=== PATIENT | female | born 1985 | race Caucasian/White ===

== ENCOUNTER 2017-09-20 19:11 | Emergency (ER) | payer OTHER ==
[~2017-09-20] VITALS: Ht 162.6 cm; Wt 60.8 kg
[~2017-09-20 19:11] MED LIST: SUMA50TA15 PO; TOPI100T20 PO
[2017-09-20 19:15] VITALS: TEMP 36.9; Ht 162.6 cm; Wt 60.8 kg
[2017-09-20] MEDS ORDERED: SODIUM CHLORIDE 0.9% 1000ML 1,000 ML IV STA (19:21)
--- NOTE | 2017-09-20 19:31 | EMERGENCY ROOM VISIT NOTE ---
History Report prepared by Haris: Juan Antonio Shin Under the Supervision of: Dr. Lm Bedoya M.D. First contact with patient: 19:16 Chief Complaint: RECTAL BLEEDING Stated Complaint: R SIDE PAIN, RECTAL BLEEDING History of Present Illness The patient is a 32 year old female who presents to the Emergency Room with complaints of severe rectal bleeding beginning tonight. The patient also notes right-sided abdominal pain but states that it has been there for awhile. She denies a history of rectal bleeding like this, and reports that a colonoscopy she received at [facility] 2 years ago was unremarkable. She denies vaginal bleeding, nausea, vomiting, or hematuria. She reports that her father had severe ulcerative colitis. She notes that she had a tubal ligation. The patient denies having anal sex. Source of History: patient Onset: tonight Position: other (rectum) Symptom Intensity: severe Quality: other (rectal bleeding) Associated Symptoms: + abdominal pain, No nausea, No vomiting, No urinary symptoms Note: denies vaginal bleeding Review of Systems See HPI for pertinent positives and negatives. A total of ten systems were reviewed and were otherwise negative. Past Medical & Surgical Medical Problems: (1) Migraines (2) No known health problems Surgical Problems: (1) Hx of tubal ligation Family History FHx: gallbladder disease FHx: hypertension FHx: kidney disease FHx: lung disease Kidney stone Ulcerative colitis Social History Smoking Status: Never Smoker Alcohol Use: none Housing Status: lives with family Occupation Status: employed Current/Historical Medications Scheduled Topiramate (Topamax), 100 MG PO BID Scheduled PRN Sumatriptan Succinate (Imitrex), 50 MG PO UD PRN for Migraine Allergies Coded Allergies: Cefaclor (Verified Allergy, Unknown, BERE, 11/02/15) Physical Exam Vital Signs Date Time Temp Pulse Resp B/P (MAP) Pulse Ox O2 Delivery O2 Flow Rate FiO2 09/20/17 20:40 76 16 102/64 98 09/20/17 20:14 86 16 109/74 99 Room Air 09/20/17 19:15 36.9 104 18 99 Room Air Physical Exam Physical Exam GENERAL: She is oriented to person, place, and time. She appears well- developed and well-nourished. She does not appear distressed. HENT: Exam performed. Head: Normocephalic and atraumatic. Right Ear: External ear normal. No mastoid tenderness. Left Ear: External ear normal. No mastoid tenderness. Mouth/Throat: The oropharynx is clear and moist. No trismus in the jaw. No dental abscesses or uvula swelling. No oropharyngeal exudate or tonsillar abscesses. EYES: Conjunctivae and EOM are normal. Pupils are equal, round, and reactive to light. Right eye exhibits no discharge. Left eye exhibits no discharge. No scleral icterus. NECK: Normal range of motion. Neck supple. No JVD present. No spinous process tenderness present. No carotid bruit present. No rigidity. No tracheal deviation and normal range of motion present. No Brudzinski's sign and no Kernig 's sign noted. CV: Normal rate, regular rhythm, normal heart sounds and intact distal pulses. There is no peripheral edema. Palpable radial pulses bue. PULM/CHEST: Effort normal and breath sounds normal. No respiratory distress. No stridor. She has no wheezes. She has no rales. Chest Wall: She exhibits no tenderness. ABD: The abdomen is soft. Bowel sounds are normal. She has no distension. No mass is present. There is right lower quadrant pain with palpation. There is no rebound, no guarding, no Bee's sign and no tenderness at McBurney's point. Rovsig negative MUSC/SKEL: Normal range of motion. There is no peripheral edema, tenderness or deformity. LYMPH: No cervical adenopathy. NEURO: She is alert and oriented to person, place, and time. She has normal strength. No cranial nerve deficit or sensory deficit. Coordination and gait normal. GCS eye subscore is 4. GCS verbal subscore is 5. GCS motor subscore is 6. Cerebellar tests wnl. SKIN: Skin is warm and dry. She is not diaphoretic. PSYCH: She has a normal mood and affect. Behavior is normal. Judgment and thought content normal. RECTAL: Bright red blood per rectum. Medical Decision & Procedures Laboratory Results 09/20/17 19:30 Red Blood Count 4.46, Mean Corpuscular Volume 85.7, Mean Corpuscular Hemoglobin 28.3, Mean Corpuscular Hemoglobin Concent 33.0, Mean Platelet Volume 11.3, Neutrophils (%) (Auto) 56.3, Lymphocytes (%) (Auto) 34.9, Monocytes (%) (Auto) 6.5, Eosinophils (%) (Auto) 1.7, Basophils (%) (Auto) 0.3, Neutrophils # (Auto) 4.09, Lymphocytes # (Auto) 2.53, Monocytes # (Auto) 0.47, Eosinophils # (Auto) 0.12, Basophils # (Auto) 0.02 09/20/17 19:30 Test 09/20/17 19:25 09/20/17 19:30 Urine Color YELLOW Urine Appearance CLOUDY (CLEAR) Urine pH 7.0 (4.5-7.5) Urine Specific [place] 1.017 (1.000-1.030) Urine Protein NEG (NEG) Urine Glucose (UA) NEG (NEG) Urine Ketones NEG (NEG) Urine Occult Blood NEG (NEG) Urine Nitrite NEG (NEG) Urine Bilirubin NEG (NEG) Urine Urobilinogen NEG (NEG) Urine Leukocyte Esterase SMALL (NEG) Urine WBC (Auto) 1-5 /hpf (0-5) Urine RBC (Auto) 0-4 /hpf (0-4) Urine Hyaline Casts (Auto) 1-5 /lpf (0-5) Urine Epithelial Cells (Auto) 10-20 /lpf (0-5) Urine Bacteria (Auto) NEG (NEG) Urine Test NEG (NEG) White Blood Count 7.25 K/uL (4.8-10.8) Red Blood Count 4.46 M/uL (4.2-5.4) Hemoglobin 12.6 g/dL (12.0-16.0) Hematocrit 38.2 % (37-47) Mean Corpuscular Volume 85.7 fL (80-100) Mean Corpuscular Hemoglobin 28.3 pg (25-34) Mean Corpuscular Hemoglobin Concent 33.0 g/dl (32-36) Platelet Count 199 K/uL (130-400) Mean Platelet Volume 11.3 fL (7.4-10.4) Neutrophils (%) (Auto) 56.3 % Lymphocytes (%) (Auto) 34.9 % Monocytes (%) (Auto) 6.5 % Eosinophils (%) (Auto) 1.7 % Basophils (%) (Auto) 0.3 % Neutrophils # (Auto) 4.09 K/uL (1.4-6.5) Lymphocytes # (Auto) 2.53 K/uL (1.2-3.4) Monocytes # (Auto) 0.47 K/uL (0.11-0.59) Eosinophils # (Auto) 0.12 K/uL (0-0.5) Basophils # (Auto) 0.02 K/uL (0-0.2) RDW Standard Deviation 44.7 fL (36.4-46.3) RDW Coefficient of Variation 14.3 % (11.5-14.5) Immature Granulocyte % (Auto) 0.3 % Immature Granulocyte # (Auto) 0.02 K/uL (0.00-0.02) Anion Gap 6.0 mmol/L (3-11) Est Creatinine Clear Calc Drug Dose 78.7 ml/min Estimated GFR () 100.7 Estimated GFR (Non- 86.9 BUN/Creatinine Ratio 16.8 (10-20) Calcium Level 8.6 mg/dl (8.5-10.1) Total Bilirubin 0.3 mg/dl (0.2-1) Direct Bilirubin < 0.1 mg/dl (0-0.2) Aspartate Amino Transf (AST/SGOT) 11 U/L (15-37) Alanine Aminotransferase (ALT/SGPT) 18 U/L (12-78) Alkaline Phosphatase 40 U/L (45-117) Total Protein 7.2 gm/dl (6.4-8.2) Albumin 3.7 gm/dl (3.4-5.0) Lipase 346 U/L (73-393) Laboratory results reviewed by me Medications Administered Medications (Trade) Dose Ordered Sig/Emiliano Route Start Time Stop Time Status Last Admin Dose Admin Sodium Chloride 1,000 ml @ 999 mls/hr Q1H1M STAT IV 09/20/17 19:21 09/20/17 20:21 DC 09/20/17 19:21 999 MLS/HR ED Course 1917: The patient was evaluated in room A10. A complete history and physical exam was performed. 1920: Ordered Sodium Chloride 1000 ml @ 999 mls/hr IV 2026: Vital signs are stable. Labs are normal, except for potassium at 3.3. Potassium was replaced orally in the ER. Repeat abdominal exam showed no pain on palpation. Low risk for appendicitis given the repeat physical exam and that appendicitis cannot be presenting with rectal bleeding. The patient and mother at bedside who is a nurse also states that the pain is also very mild and intermittent and they are not concerned about appendicitis. They were offered CT of the abdomen to rule this out however they declined. The patient was discharged and is instructed to follow up with GI. DISCHARGE - Plan of care discussed with patient and questions answered. The patient was given both verbal and printed discharge instructions. The patient verbalized understanding and ability to comply. The patient is to seek outpatient follow up as noted in the discharge instructions. The patient verbalized understanding and ability to comply. The patient is discharged in stable condition. The patient was instructed to return for worsening symptoms. Medical Decision Vital signs are stable. Labs are normal, except for potassium at 3.3. Potassium was replaced orally in the ER. Repeat abdominal exam showed no pain on palpation. Low risk for appendicitis given the repeat physical exam and that appendicitis cannot be presenting with rectal bleeding. The patient and mother at bedside who is a nurse also states that the pain is also very mild and intermittent and they are not concerned about appendicitis. They were offered CT of the abdomen to rule this out however they declined. The patient was discharged and is instructed to follow up with GI. DISCHARGE - Plan of care discussed with patient and questions answered. The patient was given both verbal and printed discharge instructions. The patient verbalized understanding and ability to comply. The patient is to seek outpatient follow up as noted in the discharge instructions. The patient verbalized understanding and ability to comply. The patient is discharged in stable condition. The patient was instructed to return for worsening symptoms. Medication Reconcilliation Current Medication List: was personally reviewed by me Blood Pressure Screening Patient's blood pressure: Normal blood pressure Blood pressure disposition: Did not require urgent referral Impression Primary Impression: Lower GI bleed Additional Impression: Hypokalemia Scribe Attestation The scribe's documentation has been prepared under my direction and personally reviewed by me in its entirety. I confirm that the note above accurately reflects all work, treatment, procedures, and medical decision making performed by me. The chart was completed utilizing [employer] Speech voice recognition software. Grammatical errors, random word insertions, pronoun errors, and incomplete sentences are an occasional consequence of this system due to software limitations, ambient noise, and hardware issues. Any formal questions or concerns about the content, text, or information contained within the body of this dictation should be directly addressed to the physician for clarification. Departure Information Dispostion Home / Self-Care Referrals Christ, Leonardo V.,D.O. (PCP) Forms HOME CARE DOCUMENTATION FORM, IMPORTANT VISIT INFORMATION, WORK / SCHOOL INSTRUCTIONS Patient Instructions My [facility] Problem Qualifiers
[2017-09-20 19:58] LABS: BASO % 0.3 %; BASO ABS # 0.02 K/uL (0-0.2); EOS % 1.7 %; EOS ABS # 0.12 K/uL (0-0.5); HEMATOCRIT 38.2 % (37-47); HEMOGLOBIN 12.6 g/dL (12.0-16.0); IG# 0.02 K/uL (0.00-0.02); LYMPH % 34.9 %; LYMPH ABS # 2.53 K/uL (1.2-3.4); MEAN CELL VOLUME 85.7 fL (80-100); MEAN CORPUSCULAR HEMOGLOBIN 28.3 pg (25-34); MEAN PLATELET VOLUME 11.3 fL (7.4-10.4); MONO % 6.5 %; MONO ABS # 0.47 K/uL (0.11-0.59); NEUT % 56.3 %; NEUT ABS # 4.09 K/uL (1.4-6.5); PLATELET COUNT 199 K/uL (130-400); RED CELL DISTRIBUTION WIDTH CV 14.3 % (11.5-14.5); RED CELL DISTRIBUTION WIDTH SD 44.7 fL (36.4-46.3); WHITE BLOOD COUNT 7.25 K/uL (4.8-10.8)
[2017-09-20 20:18] LABS: ALBUMIN 3.7 gm/dl (3.4-5.0); ALKALINE PHOSPHATASE 40 U/L (45-117); ALT/SGPT 18 U/L (12-78); AST/SGOT 11 U/L (15-37); BLOOD UREA NITROGEN 15 mg/dl (7-18); CALCIUM 8.6 mg/dl (8.5-10.1); CARBON DIOXIDE 23 mmol/L (21-32); CREATININE 0.87 mg/dl (0.60-1.20); GLUCOSE 83 mg/dl (70-99); LIPASE 346 U/L (73-393); POTASSIUM 3.3 mmol/L (3.5-5.1); SODIUM 140 mmol/L (136-145); TOTAL PROTEIN 7.2 gm/dl (6.4-8.2)
[2017-09-20 20:40] VITALS: BP 102/64; PULSE 76; O2SAT 98
== END 2017-09-20 20:40 | disposition home or self-care (01) ==
LOC: C.EDB 19:12 → C.EDA 20:40
DX: K92.2 Gastrointestinal hemorrhage, unspecified (principal); E87.6 Hypokalemia; R10.9 Unspecified abdominal pain; Z79.899 Other long term (current) drug therapy; Z88.8 Allergy status to other drugs, medicaments and biological substances

== ENCOUNTER 2022-01-29 15:56 | Inpatient (IN) ==
[2022-01-29] MEDS ORDERED: SODIUM CHLORIDE 0.9% 1000ML 1,000 ML IV STA (16:25)
--- NOTE | 2022-01-29 16:25 | ED Triage Note ---
Date of Service January 29, 2022 History of Present Illness This patient was briefly evaluated while in triage. An abbreviated physical exam was performed. This patient is a 37-year-old Female with past medical history of hysterectomy 3 months ago who presents to the ED for evaluation of chest pain worse with breathing and walking. Pain is in right and left side and into lance shoulders, worse with walking. PCP referred for PE rule out. Physical Exam VITALS: Vitals are noted on the nurse's note and reviewed by myself. GENERAL: This is a 37 year old white female, in no acute distress, nondiaphoretic, well-developed well-nourished. SKIN: No obvious rashes, edema, erythema HEAD: Normocephalic atraumatic. EYES: Conjunctivae without injection, sclerae without icterus. NECK: No JVD. LUNGS: No retractions or accessory muscle use. MUSCULOSKELETAL: Normal gait. NEURO: Patient was alert and oriented to person place and time. No focal neurological deficits. Initial orders for labs and / or imaging were placed and patient was placed in the waiting area until a bed is available. Please see further documentation for the full ED course.
--- NOTE | 2022-01-29 17:07 | XRay Report ---
XR chest 1V portable HISTORY: Shortness of breath with a typical Chest pain, nonspecific COMPARISON: None. FINDINGS: No pneumothorax. No pleural effusions. The heart is normal in size. The lungs are clear. No evidence for pulmonary edema. No rib fractures identified. There is a moderate to large amount of pn eumoperitoneum. IMPRESSION: Moderate to large amount of pneumoperitoneum. This could represent a bowel perforation or recent post operative change. ACT 112: Negative or not required by law. Electronically signed by: Dom Archuleta M.D. 01/29/2022 5:06 PM
[2022-01-29 17:14] LABS: Basophils # (auto) 0.03 K/uL (0-0.2); Basophils % (auto) 0.3 %; Eosinophils # (auto) 0.03 K/uL (0-0.50); Eosinophils % (auto) 0.3 %; Hematocrit (blood only) 43.9 % (34.1-44.9); Hemoglobin 14.8 g/dl (12.0-16.0); Immature Granulocytes # (auto) 0.04 K/uL (0.00-0.02); Immature Granulocytes % (auto) 0.4 %; Lymphocytes # (auto) 1.33 K/uL (1.2-3.4); Lymphocytes % (auto) 12.7 %; Mean Corpuscular Hemoglobin 31.7 pg (25.0-34.0); Mean Corpuscular Hgb Conc 33.7 g/dL (32.0-36.0); Monocytes # (auto) 0.46 K/uL (0.24-0.82); Monocytes % (auto) 4.4 %; Neutrophils # (auto) 8.57 K/uL (1.4-6.5); Neutrophils % (auto) 81.9 %; Platelet Count 225 K/uL (130-400); RDW Coefficient of Variation 12.3 % (11.5-14.5); RDW Standard Deviation 41.9 fL (36.4-46.3); Red Blood Count 4.67 M/uL (3.93-5.22); White Blood Count 10.46 K/ul (4.8-10.8)
[2022-01-29 17:29] LABS: Partial Thromboplastin Ratio 0.9; Prothrombin Time 10.8 Seconds (9.0-12.0)
[2022-01-29 17:54] LABS: Troponin I High Sensitivity < 2.3 pg/ml (0-14)
--- NOTE | 2022-01-29 18:13 | Emergency Department Note ---
Impression & Plan Pneumoperitoneum, Right sided abdominal pain, Chest pain ED Provider Note NAME: STEFANY CARVALHO AGE: 37 SEX: F : 1985 ARRIVES VIA: Walk-In INFORMANT: Patient, ED PROVIDER(S): Bobby Castorena MD Chief Complaint: Chest pain HPI: Patient presents primarily for lower right-sided chest pain. The patient does state that it seemed to be exertional currently 7 out of 10 at rest and does seem to worsen with activity. The patient is noted some radiation to the right shoulder blade. Patient does have a history of a hysterectomy completed 3 months prior. No interval hospitalization or surgery since then. No calf pain or leg pain or swelling. The patient does not need control. The patient denies any prior history of heart or lung disease. Patient denies any shortness of breath. The patient did try ibuprofen and Tylenol but this did not improve her symptoms. The patient describes it as sharp. Patient states that her pain began around 12:30 PM. Patient did present to [facility] and they referred her here for further evaluation and treatment. Patient denies any all tobacco or drug use. No recent long car plane travel. The patient denies any history of kidney stones and no blood in urine or stool. ROS: See HPI for pertinent positives and negatives. A total of 10 systems were r eviewed and otherwise negative. Past medical history: See below Surgical history: See below Social history: See below Physical Exam: GENERAL: NAD, wearing a mask, non-toxic. EYE EXAM: Normal conjunctiva. PERRL, no anisocoria and EOM's grossly intact w/o pain. NECK: Supple, no nuchal rigidity, no adenopathy, non-tender. No signs of meningismus. FROM of the neck with good chin to chest and neck extension. No stridor. LUNGS: Clear to auscultation. Normal chest wall mechanics. HEART: NSR, no MRG. ABDOMEN: Abdomen soft, right upper quadrant pain, normo-active bowel sounds, no masses, no rebound or guarding. BACK: No CVA TTP. SKIN: No rashes and no bruising. UPPER EXTREMITIES: Upper extremities are grossly normal. LOWER EXTREMITIES: Grossly normal, no edema. NEURO EXAM: A&O x3, cranial nerves II-XII grossly intact, normal speech, moves all 4 extremities. Differential diagnoses: Cardiac ischemia, aortic dissection, pulmonary embolism, pneumothorax, pneumonia, pericarditis, myocarditis, esophageal rupture, GERD, cholecystitis, pancreatitis, musculoskeletal, Appendicitis, ovarian cyst, ovarian torsion, ectopic , TOA, PID, infections, diverticulitis, UTI, obstruction, mesenteric ischemia, aortic pathology, inflammatory bowel disease, renal colic, PUD, pancreatitis, biliary pathology, hernia, volvulus, constipation, as well as other pathologies. Course: Patient was seen and evaluated the bedside. Full history physical exam was performed. EKG interpreted by me Normal sinus rhythm, rate 78, normal intervals normal axis, T wave flattening anteriorly but no ST depressions or elevations. Looks fairly similar to her EKG that was obtained earlier today at [facility]. No other priors for comparison. Imaging Studies: See Below Cardiac monitoring: An order was placed for continuous cardiac monitoring. The monitor shows a rate of with rhythm. MDM: Patient presents due to concern for chest pain and right upper quadrant pain. The patient was referred for rule out PE. The patient could have PE is a possibility but the patient is PERC negative. Patient has no evidence of DVT on exam and low risk Wells score. On the patient's exam the patient does have right upper quadrant pain. I did add a D-dimer and chest x-ray. Right upper quadrant ultrasound also ordered. The patient was ordered Toradol and IV fluids. Patient has no prior history of heart or lung disease. The patient has a normal white count H&H and platelet count. Patient's kidney function is unremarkable. Patient's troponin is undetectable. Patient's LFTs and lipase are normal. On exam the patient had right upper quadrant pain so an ultrasound was ordered. The patient did have a triage x-ray completed which showed pneumoperitoneum. The RUQ US was canceled and CT abdomen pelvis was ordered. Toradol was canceled. Patient CT abdomen pelvis does show pneumoperitoneum. Patient was ordered ciprofloxacin and Flagyl. Patient was ordered morphine for pain. I did consult general surgery Dr. Harden who did evaluate the patient. Dr. Harden wanted PRIVACY DIRECTOR to be consulted given the patient's hysterectomy that occurred back in October. Dr. Archuleta did evaluate the patient does not think that this is PRIVACY DIRECTOR related. I did convey this to Dr. Harden and the patient was admitted to the surgical service. Of note the patient's D-dimer was not elevated. Believe PE to be less likely. T he patient has no signs or stigmata DVT on exam. Low risk Wells score. Heart score less than 4 low risk ACS. Do believe that the patient's chest pain is secondary to the pneumoperitoneum. Past Med/Surg History Medical History Heavy menstrual bleeding Migraines Pelvic pain Surgical History History of colonoscopy History of endometrial ablation History of hand surgery left--hardware in place History of lumpectomy of left breast benign mass removed History of wisdom tooth extraction Hx of hysterectomy Hx of tubal ligation Family History Other No family history of adverse response to anesthesia Social History Smoking Status: Never smoker Second Hand Exposure: No; Hx Alcohol Use: No Hx Substance Use: No Preferred Language: Central African Communication Ability: Effective Tool Lathe Operator Required: No Beliefs That Will Affect Care: None Current Living Situation: Spouse Current Living Situation Comment: Lives with parents Other Information That Helps Us Care for You: No Feels Safe at Home: Yes Safety Concerns: Feels Safe At This Time Assistive Devices: Glasses Allergies Allergies Allergy/AdvReac Type Severity Reaction Status Date / Time cefaclor Allergy Intermediate Hives Verified 01/29/22 19:50 Home Meds Home Medications Medication Instructions Recorded Confirmed topiramate 100 mg tablet (Topamax) 100 mg PO BID 10/25/21 01/29/22 rizatriptan 10 mg disintegrating 10 mg PO UD PRN Migraine Headache 01/29/22 01/29/22 tablet Results & Data (ED) Vital Signs Vital Signs - 24 hr 01/29/22 15:57 01/29/22 19:16 01/29/22 19:16 Temperature 36.8 C Temperature Source Oral Pulse Rate 90 77 Pulse Rate [Apical] Respiratory Rate 18 18 Respiratory Effort / Characteristics Non-Labored Respiratory Depth Normal Respiratory Pattern Regular Blood Pressure 135/89 Blood Pressure [Right Arm] Blood Pressure Mean 104 Blood Pressure Mean [Right Arm] Blood Pressure Position Lying Pulse Oximetry 100 98 98 Oxygen Delivery Method Room Air Room Air Room Air Sepsis Recent Fever Within 48 Hours No Sepsis New/Unexplained Change in Mental Status No Sepsis Action Taken by Nursing No Action Required 01/29/22 19:48 01/29/22 21:00 Temperature Temperature Source Pulse Rate Pulse Rate [Apical] 93 H 95 H Respiratory Rate 18 18 Respiratory Effort / Characteristics Non-Labored Respiratory Depth Normal Respiratory Pattern Blood Pressure Blood Pressure [Right Arm] 121/81 127/84 Blood Pressure Mean Blood Pressure Mean [Right Arm] 94 98 Blood Pressure Position Pulse Oximetry 100 98 Oxygen Delivery Method Room Air Room Air Sepsis Recent Fever Within 48 Hours Sepsis New/Unexplained Change in Mental Status Sepsis Action Taken by [facility] Medications Current Medication List: was personally reviewed by me Laboratory Data Attestation: I reviewed the patient's lab results. Result diagrams: 01/29/22 16:57 01/29/22 16:57 Lab Results 01/29/22 01/29/22 01/29/22 Range/Units 16:57 16:57 16:57 WBC 10.46 (4.8-10.8) K/ul RBC 4.67 (3.93-5.22) M/uL Hgb 14.8 (12.0-16.0) g/dl Hct 43.9 (34.1-44.9) % MCV 94.0 (80.0-100.0) fL MCH 31.7 (25.0-34.0) pg MCHC 33.7 (32.0-36.0) g/dL RDW Std Deviation 41.9 (36.4-46.3) fL RDW Coeff of Bassam 12.3 (11.5-14.5) % Plt Count 225 (130-400) K/uL MPV 10.0 (9.4-12.3) fL Immature Gran % (Auto) 0.4 % Neut % (Auto) 81.9 % Lymph % (Auto) 12.7 % Otero % (Auto) 4.4 % Eos % (Auto) 0.3 % Baso % (Auto) 0.3 % Neut # (Auto) 8.57 H (1.4-6.5) K/uL Lymph # (Auto) 1.33 (1.2-3.4) K/uL Otero # (Auto) 0.46 (0.24-0.82) K/uL Eos # (Auto) 0.03 (0-0.50) K/uL Baso # (Auto) 0.03 (0-0.2) K/uL Immature Gran # (Auto) 0.04 H (0.00-0.02) K/uL PT 10.8 (9.0-12.0) Seconds INR 1.0 (0.9-1.1) APTT 24.0 (21.0-31.0) Seconds PTT Ratio 0.9 D-Dimer (0-500) ug/L FEU Sodium 138 (136-145) mmol/L Potassium 4.1 (3.5-5.1) mmol/L Chloride 110 H (98-107) mmol/L Carbon Dioxide 21 (21-32) mmol/L Anion Gap 7 (3-11) BUN 11 (6-23) mg/dl Creatinine 0.76 (0.6-1.2) mg/dl Est Cr Clr Drug Dosing 96.9 ml/min Est GFR ( Amer) 114.5 ml/min Est GFR (Non-Af Amer) 98.8 ml/min BUN/Creatinine Ratio 14.5 (10-20) Glucose 77 (70-99(Fasting)) mg/dl Calcium 8.6 (8.5-10.1) mg/dl Total Bilirubin 0.4 (0.2-1.0) mg/dl AST 19 (13-39) U/L ALT 13 (7-52) U/L Alkaline Phosphatase 42 (34-104) U/L Troponin I High Sens < 2.3 (0-14) pg/ml Total Protein 7.2 (6.0-8.3) gm/dl Albumin 4.2 (3.4-5.0) gm/dl Globulin 3.0 (2.5-4.0) gm/dl Albumin/Globulin Ratio 1.4 (0.9-2) Lipase 33 (11-82) U/L SARS-CoV-2, RNA, NAAT (NEGATIVE) 01/29/22 01/29/22 Range/Units 16:57 19:39 WBC (4.8-10.8) K/ul RBC (3.93-5.22) M/uL Hgb (12.0-16.0) g/dl Hct (34.1-44.9) % MCV (80.0-100.0) fL MCH (25.0-34.0) pg MCHC (32.0-36.0) g/dL RDW Std Deviation (36.4-46.3) fL RDW Coeff of Bassam (11.5-14.5) % Plt Count (130-400) K/uL MPV (9.4-12.3) fL Immature Gran % (Auto) % Neut % (Auto) % Lymph % (Auto) % Otero % (Auto) % Eos % (Auto) % Baso % (Auto) % Neut # (Auto) (1.4-6.5) K/uL Lymph # (Auto) (1.2-3.4) K/uL Otero # (Auto) (0.24-0.82) K/uL Eos # (Auto) (0-0.50) K/uL Baso # (Auto) (0-0.2) K/uL Immature Gran # (Auto) (0.00-0.02) K/uL PT (9.0-12.0) Seconds INR (0.9-1.1) APTT (21.0-31.0) Seconds PTT Ratio D-Dimer 280 (0-500) ug/L FEU Sodium (136-145) mmol/L Potassium (3.5-5.1) mmol/L Chloride (98-107) mmol/L Carbon Dioxide (21-32) mmol/L Anion Gap (3-11) BUN (6-23) mg/dl Creatinine (0.6-1.2) mg/dl Est Cr Clr Drug Dosing ml/min Est GFR ( Amer) ml/min Est GFR (Non-Af Amer) ml/min BUN/Creatinine Ratio (10-20) Glucose (70-99(Fasting)) mg/dl Calcium (8.5-10.1) mg/dl Total Bilirubin (0.2-1.0) mg/dl AST (13-39) U/L ALT (7-52) U/L Alkaline Phosphatase (34-104) U/L Troponin I High Sens (0-14) pg/ml Total Protein (6.0-8.3) gm/dl Albumin (3.4-5.0) gm/dl Globulin (2.5-4.0) gm/dl Albumin/Globulin Ratio (0.9-2) Lipase (11-82) U/L SARS-CoV-2, RNA, NAAT NEGATIVE (NEGATIVE) Administered Medications Discontinued Medications Sodium Chloride (Nss 1000ml) 1,000 mls @ 999 mls/hr IV .Q1H1M STA Stop: 01/29/22 17:25 Last Infusion: 01/29/22 19:14 Dose: 0 mls/hr Documented By: Admin: 01/29/22 18:23 Dose: 999 mls/hr Documented By: TNB Ciprofloxacin (Cipro / D5w) 400 mg in 200 mls @ 200 mls/hr IV NOW STA Stop: 01/29/22 20:43 Last Infusion: 01/29/22 21:19 Dose: 0 mls/hr Documented By: Admin: 01/29/22 19:51 Dose: 200 mls/hr Documented By: TNMelissa Metronidazole (Flagyl) 500 mg in 100 mls @ 100 mls/hr IV NOW STA Stop: 01/29/22 20:43 Last Infusion: 01/29/22 22:23 Dose: 0 mls/hr Documented By: Admin: 01/29/22 21:20 Dose: 100 mls/hr Documented By: TIFFANI Cefazolin Sodium (Ancef 2000mg) 2,000 mg in 15 mls @ 3.75 mls/min IV PREOP ONE; Protocol Stop: 01/29/22 21:16 Last Admin: 01/29/22 23:28 Dose: Not Given Documented By: TKB Ioversol (Optiray 350 100ml) 84 ml IV ONCE ONE Stop: 01/29/22 18:57 Last Admin: 01/29/22 18:58 Dose: 84 ml Documented By: DESIREE Ketorolac Tromethamine (Ketorolac Tromethamine 15 Mg/Ml Vial) 10 mg IV NOW ONE Stop: 01/29/22 18:36 Last Admin: 01/29/22 19:23 Dose: Not Given Documented By: TNB Morphine Sulfate (Morphine Sulfate 4 Mg/Ml 1 Ml Carp\Vial) 4 mg IV NOW STA Stop: 01/29/22 19:39 Last Admin: 01/29/22 19:47 Dose: 4 mg Documented By: TIFFANI Imaging Data Radiologist's Impression: Chest X-Ray 01/29/22 16:25 XR chest 1V portable HISTORY: Shortness of breath with a typical Chest pain, nonspecific COMPARISON: None. FINDINGS: No pneumothorax. No pleural effusions. The heart is normal in size. The lungs are clear. No evidence for pulmonary edema. No rib fractures identified. There is a moderate to large amount of pneumoperitoneum. IMPRESSION: Moderate to large amount of pneumoperitoneum. This could represent a bowel perforation or recent postoperative change. ACT 112: Negative or not required by law. Electronically signed by: Dom Archuleta M.D. 01/29/2022 5:06 PM Abdomen/Pelvis CT 01/29/22 18:[address] WITH IV CONTRAST CT DOSE: 329.94 mGy.cm HISTORY: Abnormal chest x-ray. pneumoperitoneum TECHNIQUE: Multiaxial CT images of the abdomen and pelvis were performed following the use of intravenous contrast. A dose lowering technique was utilized adhering to the principles of ALARA. COMPARISON STUDY: Abdomen and pelvis CT 03/26/2015. FINDINGS: The lung bases are clear. There is a large amount of pneumoperitoneum. No fractures within the visualized osseous structures. There is a small fat- containing umbilical hernia. The liver, gallbladder, pancreas, spleen, adrenal glands, and kidneys are unremarkable. No hydronephrosis. The main portal vein is patent. No retroperitoneal lymphadenopathy. Normal caliber abdominal aorta. No significant pelvic free fluid. The bladder is unremarkable. The uterus surgically absent. The etiology of the pneumoperitoneum is not identified with certainty. There is a normal caliber appendix. No definite bowel wall thickening. There are few fluid-filled loops of small bowel within the deep pelvis which are not significantly dilated to suggest a bowel obstruction. Mild twisting within the mesentery of the deep pelvis without evidence for a definite internal hernia. IMPRESSION: 1. Large amount of no pneumoperitoneum. This is of uncertain etiology. Therefore, in the absence of recent intervention, a bowel perforation would be the diagnosis of exclusion. Surgical consultation recommended. 2. Slight twisting of the mesentery in the deep pelvis without definite internal hernia or obstruction. 3. Normal appendix. Fluid-filled ACT 112: Negative or not required by law. Electronically signed by: Dom Archuleta M.D. 01/29/2022 7:26 PM Discharge Plan Visit Data Chief Complaint: Chest Pain Stated Complaint: REFERRED BY DOC,CHEST PAIN,RIGHT SHOULDER, BLOOD C ED Provider: Bobby Castorena Discharge Problem: Pneumoperitoneum, Right sided abdominal pain, Chest pain Patient Disposition: Admitted As Inpatient Discharge Instructions Interventions: ED Discharge Assessment Last Done: 01/29/22 22:47
[2022-01-29 18:21] LABS: Alanine Aminotransferase 13 U/L (7-52); Albumin Globulin Ratio 1.4 (0.9-2); Albumin Level 4.2 gm/dl (3.4-5.0); Alkaline Phosphatase 42 U/L (34-104); Anion Gap 7 (3-11); Aspartate Aminotransferase 19 U/L (13-39); BUN Creatinine Ratio 14.5 (10-20); Bilirubin,Total 0.4 mg/dl (0.2-1.0); Blood Urea Nitrogen 11 mg/dl (6-23); Calcium 8.6 mg/dl (8.5-10.1); Carbon Dioxide 21 mmol/L (21-32); Chloride 110 mmol/L (98-107); Creatinine Clr Calc Pharmacy 96.9 ml/min; Est GFR (African American) 114.5 ml/min; Est GFR (Non-African American) 98.8 ml/min; Glucose 77 mg/dl (70-99(Fasting)); Lipase 33 U/L (11-82); Potassium 4.1 mmol/L (3.5-5.1); Sodium 138 mmol/L (136-145); Total Protein 7.2 gm/dl (6.0-8.3)
[2022-01-29] MEDS ORDERED: KETOROLAC TROMETHAMINE 15 MG/ML VIAL IV ONE (18:35)
[2022-01-29 18:49] LABS: D Dimer 280 ug/L FEU (0-500)
[2022-01-29] MEDS ORDERED: OPTIRAY 350 100ml IV ONE (18:56)
--- NOTE | 2022-01-29 19:29 | CT Scan Report ---
ABDOMEN AND PELVIS CT WITH IV CONTRAST CT DOSE: 329.94 mGy.cm HISTORY: Abnormal chest x-ray. pneumoperitoneum TECHNIQUE: Multiaxial CT images of the abdomen and pelvis were performed following the use of intrave nous contrast. A dose lowering technique was utilized adhering to the principles of ALARA. COMPARISON STUDY: Abdomen and pelvis CT 03/26/2015. FINDINGS: The lung bases are clear. There is a large amount of pneumoperitoneum. No fractures within the visualized osseous structures. There is a small fat-containing umbilical hernia. The liver, gallb ladder, pancreas, spleen, adrenal glands, and kidneys are unremarkable. No hydronephrosis. The main p ortal vein is patent. No retroperitoneal lymphadenopathy. Normal caliber abdominal aorta. No signific ant pelvic free fluid. The bladder is unremarkable. The uterus surgically absent. The etiology of the pneumoperitoneum is not identified with certainty. There is a normal caliber appendix. No definite b owel wall thickening. There are few fluid-filled loops of small bowel within the deep pelvis which ar e not significantly dilated to suggest a bowel obstruction. Mild twisting within the mesentery of the deep pelvis without evidence for a definite internal hernia. IMPRESSION: 1. Large amount of no pneumoperitoneum. This is of uncertain etiology. Therefore, in the absence of r ecent intervention, a bowel perforation would be the diagnosis of exclusion. Surgical consultation re commended. 2. Slight twisting of the mesentery in the deep pelvis without definite internal hernia or obstructio n. 3. Normal appendix. Fluid-filled ACT 112: Negative or not required by law. Electronically signed by: Dom Archuleta M.D. 01/29/2022 7:26 PM
[2022-01-29] MEDS ORDERED: MoRPHine SULFATE 4 MG/ML 1 ML CARP\\VIAL IV STA (19:38)
[2022-01-29] MEDS ORDERED: CIPROFLOXACIN / D5W 400 MG/200 ML BAG IV STA (19:44)
[2022-01-29] MEDS ORDERED: metroNIDAZOLE 500 MG/100 ML BAG IV STA (19:44)
--- NOTE | 2022-01-29 21:06 | Surgery Consultation ---
Date of Consultation January 29, 2022 Assessment & Plan (1) Pneumopericardium: pt is a 37 year-old female who presents to ER with 9 hours right chest pain and RUQ pain, IMP: pneumoperitoneum plan, I recommend to do diagnostic laparoscopy, possible exploratory laparotomy, bowel resection, or stoma, d/W benefits, risks and alternatives of the surgery, the risks - infection, bleeding, injury other organs, bowel obstruction, sepsis, abscess, incisional hernia, pt and her understood, they agreed with surgery, pt signed informed consent, I answered all questions, History of Present Illness Reason for Consultation: pneumoperitoneum Requesting Physician: Bobby melton MD History of Present Illness [facility] Complaint: Chest pain HPI: Patient presents primarily for lower right-sided chest pain. The patient does state that it seemed to be exertional currently 7 out of 10 at rest and does seem to worsen with activity. The patient is noted some radiation to the right shoulder blade. Patient does have a history of a hysterectomy completed 3 months prior. No interval hospitalization or surgery since then. No calf pain or leg pain or swelling. The patient does not need control. The patient denies any prior history of heart or lung disease. Patient denies any shortness of breath. The patient did try ibuprofen and Tylenol but this did not improve her symptoms. The patient describes it as sharp. Patient states that her pain began around 12:30 PM. Patient did present to [facility] and they referred her here for further evaluation and treatment. Patient denies any all tobacco or drug use. No recent long car plane travel. The patient denies any history of kidney stones and no blood in urine or stool. I ( Chanda Harden MD) got a call for consult pneumoperitoneum, I reviewed pt's H/P, labs, CT can CXR with pt, pt is still have RUQ pain, ROS: See HPI for pertinent positives and negatives. A total of 10 systems were reviewed and otherwise negative. Allergies Allergy/AdvReac Type Severity Reaction Status Date / Time cefaclor Allergy Intermediate Hives Verified 01/29/22 19:50 Home Medications Medication Instructions Recorded Confirmed Type topiramate 100 mg tablet (Topamax) 100 mg PO BID 10/25/21 01/29/22 History rizatriptan 10 mg disintegrating 10 mg PO UD PRN Migraine Headache 01/29/22 01/29/22 History tablet Patient History Medical History Heavy menstrual bleeding Migraines Pelvic pain Surgical History History of colonoscopy History of endometrial ablation History of hand surgery left--hardware in place History of lumpectomy of left breast benign mass removed History of wisdom tooth extraction Hx of tubal ligation Family History Other No family history of adverse response to anesthesia Social History Smoking Status: Never smoker Second Hand Exposure: No; Hx Alcohol Use: No Hx Substance Use: No Preferred Language: Mohawk Communication Ability: Effective Stringer Up Soldering Machine Required: No Beliefs That Will Affect Care: None Current Living Situation: Spouse Current Living Situation Comment: Lives with parents Other Information That Helps Us Care for You: No Feels Safe at Home: Yes Safety Concerns: Feels Safe At This Time Assistive Devices: Glasses Physical Exam Constitutional: WD/WN, vitals as above Eyes: PERRL, conjunctivae normal, anicteric sclerae Neck: trachea midline, no thyromegaly Respiratory: normal respiratory effort, lungs clear to auscultation Cardiovascular: RRR, no murmur, no edema Gastrointestinal (Abdomen): mild tenderness at RUQ, no rebound pain, mild distend, BS +, Musculoskeletal: no cyanosis or clubbing, extremities motor strength 5/5 Neurologic: patellar DTR's 2+ bilat, sensation intact Psychiatric: A+Ox3, euthymic affect Results & Data ([facility]) Vital Signs (Past 12 Hours) Vital Signs Temp Pulse Pulse Resp BP BP Pulse Ox 01/29/22 19:48 93 H 18 121/81 100 01/29/22 19:16 77 18 98 01/29/22 19:16 98 01/29/22 15:57 36.8 C 90 18 135/89 100 O2 Del Method 01/29/22 19:48 Room Air 01/29/22 19:16 Room Air 01/29/22 19:16 Room Air 01/29/22 15:57 Room Air Laboratory Results Abnormal lab results 01/29/22 01/29/22 Range/Units 16:57 16:57 Neut # (Auto) 8.57 H (1.4-6.5) K/uL Immature Gran # (Auto) 0.04 H (0.00-0.02) K/uL Chloride 110 H (98-107) mmol/L Diagnostic Findings ABDOMEN AND PELVIS CT WITH IV CONTRAST CT DOSE: 329.94 mGy.cm HISTORY: Abnormal chest x-ray. pneumoperitoneum TECHNIQUE: Multiaxial CT images of the abdomen and pelvis were performed following the use of intravenous contrast. A dose lowering technique was utilized adhering to the principles of ALARA. COMPARISON STUDY: Abdomen and pelvis CT 03/26/2015. FINDINGS: The lung bases are clear. There is a large amount of pneumoperitoneum. No fractures within the visualized osseous structures. There is a small fat- containing umbilical hernia. The liver, gallbladder, pancreas, spleen, adrenal glands, and kidneys are unremarkable. No hydronephrosis. The main portal vein is patent. No retroperitoneal lymphadenopathy. Normal caliber abdominal aorta. No significant pelvic free fluid. The bladder is unremarkable. The uterus surgically absent. The etiology of the pneumoperitoneum is not identified with certainty. There is a normal caliber appendix. No definite bowel wall thickening. There are few fluid-filled loops of small bowel within the deep pelvis which are not significantly dilated to suggest a bowel obstruction. Mild twisting within the mesentery of the deep pelvis without evidence for a definite internal hernia. IMPRESSION: 1. Large amount of no pneumoperitoneum. This is of uncertain etiology. Therefore, in the absence of recent intervention, a bowel perforation would be the diagnosis of exclusion. Surgical consultation recommended. 2. Slight twisting of the mesentery in the deep pelvis without definite internal hernia or obstruction. 3. Normal appendix. Fluid-filled ACT 112: Negative or not required by law.
--- NOTE | 2022-01-29 21:12 | Anesthesiology Consultation ---
Date of Service January 29, 2022 Assessment & Plan (1) Encounter for pre-operative examination: Chart Review Chart Review: Acceptable Risk for Surgery (Urgent) History Surgery Operation Date: 01/29/22 21:05 Proposed Procedures p Laparoscopic Operative - Chanda Harden MD Height/Weight Height: 5 ft 4 in Weight: 72.5 kg Allergies Allergy/AdvReac Type Severity Reaction Status Date / Time cefaclor Allergy Intermediate Hives Verified 01/29/22 19:50 Medications Home Medications Medication Instructions Recorded Confirmed Last Taken topiramate 100 mg tablet (Topamax) 100 mg PO BID 10/25/21 01/29/22 11/02/21 05:00 rizatriptan 10 mg disintegrating 10 mg PO UD PRN Migraine Headache 01/29/22 01/29/22 Unknown tablet Past Medical History Medical History Heavy menstrual bleeding Migraines Pelvic pain Past Family History Family History Other No family history of adverse response to anesthesia Past Surgical History Surgical History (Updated 01/29/22 @ 21:26 by Rell Fernando MD) History of colonoscopy History of endometrial ablation History of hand surgery left--hardware in place History of lumpectomy of left breast benign mass removed History of wisdom tooth extraction Hx of hysterectomy Hx of tubal ligation Social History Smoking Status: Never smoker Hx Alcohol Use: No Hx Substance Use: No substance use type: does not use Physical Exam Vital Signs Last Vital Signs Temp 36.8 C 01/29/22 15:57 Pulse 93 H 01/29/22 19:48 Resp 18 01/29/22 19:48 BP 121/81 01/29/22 19:48 Pulse Ox 100 01/29/22 19:48 O2 Del Method 01/29/22 19:48 Testing Laboratory Results 01/29/22 16:57 01/29/22 16:57 PT 10.8 Seconds (9.0-12.0) 01/29/22 16:57 INR 1.0 (0.9-1.1) 01/29/22 16:57 APTT 24.0 Seconds (21.0-31.0) 01/29/22 16:57 Electrocardiogram Date: 01/29/22 Findings: + NSR @ (78)
[2022-01-29] MEDS ORDERED: ceFAZolin 2000MG 2,000 MG/15 ML SYR IV ONE (21:13)
--- NOTE | 2022-01-29 21:13 | History & Physical Bridge Note ---
Date of Service January 29, 2022 History & Physical Bridge Note I have examined the patient, reviewed the History & Physical and in the interval since the performance of the History & Physical I have noted the following changes of clinical significance: no changes noted
[2022-01-29] MEDS ORDERED: MIDAZOLAM HCL 1 MG/ML 2ML VIAL ONE (21:21)
[2022-01-29] MEDS ORDERED: fentaNYL citrate 100 MCG/2 ML VIAL ONE (21:21)
[2022-01-29] MEDS ORDERED: ATROPINE SULFATE 0.1 MG/ML 10ML SYR IV PRN (21:27)
[2022-01-29] MEDS ORDERED: fentaNYL citrate 100 MCG/2 ML VIAL IV PRN (21:27)
[2022-01-29] MEDS ORDERED: ONDANSETRON INJ 2 MG/ML 2 ML VIAL IV PRN (21:27)
[2022-01-29] MEDS ORDERED: PROMETHAZINE HCL 12.5 MG in SODIUM CHLORIDE 0.9% 50 ML IV PRN (21:27)
[2022-01-29] MEDS ORDERED: KETOROLAC 30 MG/ML VIAL IV PRN (21:27)
[2022-01-29] MEDS ORDERED: MoRPHine SULFATE 2 MG/ML CARP IV PRN (23:13)
[2022-01-29] MEDS ORDERED: RIZATRIPTAN BENZOATE 10 MG TAB PO PRN (23:21)
[2022-01-29] MEDS: D5W AND 1/2NSS + 20MEQ KCL 20 MEQ/1,000 ML BAG IV SCH (23:55)
[2022-01-30] MEDS: MoRPHine SULFATE 4 MG/ML 1 ML CARP\\VIAL IV PRN ×2 (00:15→05:11)
--- NOTE | 2022-01-30 02:35 | Consultation Report ---
DATE OF SERVICE: 01/29/2022. This is FIELD MARKETING MANAGER consult from the ER. Dr. Castorena was the attending. This is a consult placed by Dr. Castorena. HISTORY OF PRESENT ILLNESS: The patient is a 37-year-old status post laparoscopic hysterectomy 3 mon ths ago, presented to the Emergency Room with lower right-sided chest pain. She stated that the pain started at noon today. Since hysterectomy 3 months ago, she has had no problem. She has returned t o work in full activity. The pain, however, started this afternoon and was located in the right ches t region, radiating to the back. Pain was rated 7/10, worse with movement. The patient presented to the Emergency Room where she was seen and FIELD MARKETING MANAGER consult placed because of her recent hysterectomy. Wh en seeing the patient, the patient was resting comfortably in bed. She reports worsening of pain wit h movement. Denies any upper respiratory tract infection recently or any exposure to COVID. She has been seen by the ER doctor. CT scan has been done and is negative for PE. PAST MEDICAL HISTORY: History of menorrhagia, migraines, and pelvic pain. PAST SURGICAL HISTORY: History of colonoscopy, endometrial ablation, hysterectomy, left breast maste ctomy, and dental procedures. SOCIAL HISTORY: Denies tobacco, drug or alcohol use. FAMILY HISTORY: Noncontributory. ALLERGIES: THE PATIENT HAS ALLERGIES TO CEFACLOR. PHYSICAL EXAMINATION: GENERAL: Well-developed, well-nourished white female, resting comfortably in bed. VITAL SIGNS: Temperature 36.8, respirations 18, blood pressure 135/89. HEART: S1 and S2, regular rhythm and rate. LUNGS: The patient has pain on deep inspiration. ABDOMEN: Nontender, nondistended, positive bowel sounds. No guarding or rebound. EXTREMITIES: No cyanosis, clubbing, or edema. LABORATORY DATA: Have been reviewed. D-dimer is negative. ASSESSMENT AND PLAN: A 37-year-old status post hysterectomy 3 months ago with sudden onset of right lower chest pain. FIELD MARKETING MANAGER was called because the patient is status post hysterectomy 3 months ago for ev aluation of the patient. I do not think this is a FIELD MARKETING MANAGER etiology. The patient's hysterectomy was ____ about 3 months ago and has been doing well and has had no problems. Has returned to full activity. The patient's pain was sudden, started this afternoon. Abdominal exam is unremarkable. I have disc ussed my findings with ER physician. Thank you very much for the consultation. Job ID: [id number]
[2022-01-30] MEDS: CIPROFLOXACIN / D5W 400 MG/200 ML BAG IV SCH ×2 (08:10→20:49)
[2022-01-30] MEDS ORDERED: ONDANSETRON INJ 2 MG/ML 2 ML VIAL IV PRN (08:12)
[2022-01-30] MEDS: TOPIRAMATE 100 MG TAB PO SCH ×3 (09:15→20:56)
--- NOTE | 2022-01-30 09:36 | Surgery Progress Note ---
Date of Service January 30, 2022 Assessment & Plan (1) Pneumopericardium: Plan: pt is a 37 year-old female who presents to ER with 9 hours right chest pain and RUQ pain, IMP: pneumoperitoneum plan, I recommend to do diagnostic laparoscopy, possible exploratory laparotomy, bowel resection, or stoma, d/W benefits, risks and alternatives of the surgery, the risks - infection, bleeding, injury other organs, bowel obstruction, sepsis, abscess, incisional hernia, pt and her understood, they agreed with surgery, pt signed informed consent, I answered all questions, 01/30/2022 9:34 AM IMP: pneumoperitoneum plan, base on pt developed abdominal pain this morning, and OBG-YN note, I recommend to do diagnostic laparoscopy, possible exploratory laparotomy, bowel resection, or stoma, d/W benefits, risks and alternatives of the surgery, the risks - infection, bleeding, injury other organs, bowel obstruction, sepsis, abscess, incisional hernia, pt understood, she agreed with surgery, pt signed informed consent, I answered all questions, Admission and Anticipated Discharge Date Admission Date: January 29, 2022 Subjective F/U pneumoperitoneum, pt feels some epigastric pain this morning, with nausea, no vomiting, no fever, vital signs stable, reviewed OBG-YN note with pt, Physical Exam Constitutional: WD/WN, vitals as above Eyes: PERRL, conjunctivae normal, anicteric sclerae Neck: trachea midline, no thyromegaly Respiratory: normal respiratory effort, lungs clear to auscultation Cardiovascular: RRR, no murmur, no edema Gastrointestinal (Abdomen): tenderness at epigastric area, no rebound pain, mild distend abdomen, BS +, Musculoskeletal: no cyanosis or clubbing, extremities motor strength 5/5 Neurologic: patellar DTR's 2+ bilat, sensation intact Psychiatric: A+Ox3, euthymic affect Results & Data ([facility]) Vital Signs (Past 12 Hours) Vital Signs Temp Pulse Resp BP Pulse Ox O2 Del Method 01/30/22 07:27 36.8 C 72 16 96/60 L 98 Room Air 01/29/22 23:16 36.7 C 76 16 119/80 98 Room Air Laboratory Results Abnormal lab results 01/29/22 01/29/22 Range/Units 16:57 16:57 Neut # (Auto) 8.57 H (1.4-6.5) K/uL Immature Gran # (Auto) 0.04 H (0.00-0.02) K/uL Chloride 110 H (98-107) mmol/L
[2022-01-30] MEDS: D5W AND 1/2NSS + 20MEQ KCL 20 MEQ/1,000 ML BAG IV SCH ×2 (09:45→23:50)
--- NOTE | 2022-01-30 09:51 | History & Physical Bridge Note ---
Date of Service January 30, 2022 History & Physical Bridge Note I have examined the patient, reviewed the History & Physical and in the interval since the performance of the History & Physical I have noted the following changes of clinical significance: no changes noted
[2022-01-30 10:22] LABS: Albumin Globulin Ratio 1.5 (0.9-2); Albumin Level 3.4 gm/dl (3.4-5.0); BUN Creatinine Ratio 13.6 (10-20); Bilirubin,Total 0.6 mg/dl (0.2-1.0); Calcium 7.9 mg/dl (8.5-10.1); Creatinine Clr Calc Pharmacy 111.7 ml/min; Est GFR (Non-African American) 111.3 ml/min; Globulin 2.2 gm/dl (2.5-4.0); Potassium 3.7 mmol/L (3.5-5.1); Total Protein 5.6 gm/dl (6.0-8.3)
[2022-01-30] MEDS ORDERED: PROPOFOL IV EMULSION 10 MG/ML 20 ML VIAL IV ONE (10:30)
[2022-01-30] MEDS ORDERED: GLYCOPYRROLATE 0.2 MG/ML VIAL ONE (10:30)
[2022-01-30] MEDS ORDERED: NEOSTIGMINE METHYLSULFATE 1 MG/ML 10ML VIAL ONE (10:30)
[2022-01-30] MEDS ORDERED: MIDAZOLAM HCL 1 MG/ML 2ML VIAL ONE (10:30)
[2022-01-30] MEDS ORDERED: DEXAMETHASONE SOD INJ 4 MG/ML VIAL ONE (10:30)
[2022-01-30] MEDS ORDERED: ONDANSETRON INJ 2 MG/ML 2 ML VIAL ONE (10:30)
[2022-01-30] MEDS ORDERED: fentaNYL citrate 100 MCG/2 ML VIAL ONE (10:30)
[2022-01-30] MEDS ORDERED: ROCURONIUM BROMIDE 10 MG/ML 5 ML VIAL IV ONE (10:30)
[2022-01-30] MEDS ORDERED: LIDOCAINE 2% MPF LOCAL 5 ML VIAL INFIL ONE (10:30)
[2022-01-30 10:53] LABS: Basophils # (auto) 0.02 K/uL (0-0.2); Basophils % (auto) 0.4 %; Eosinophils # (auto) 0.09 K/uL (0-0.50); Eosinophils % (auto) 1.9 %; Hematocrit (blood only) 38.2 % (34.1-44.9); Hemoglobin 12.7 g/dl (12.0-16.0); Immature Granulocytes # (auto) 0.02 K/uL (0.00-0.02); Immature Granulocytes % (auto) 0.4 %; Lymphocytes # (auto) 1.24 K/uL (1.2-3.4); Lymphocytes % (auto) 25.6 %; Mean Corpuscular Hemoglobin 31.8 pg (25.0-34.0); Mean Corpuscular Hgb Conc 33.2 g/dL (32.0-36.0); Mean Corpuscular Volume 95.5 fL (80.0-100.0); Mean Platelet Volume 10.3 fL (9.4-12.3); Monocytes % (auto) 6.2 %; Neutrophils # (auto) 3.17 K/uL (1.4-6.5); Neutrophils % (auto) 65.5 %; Platelet Count 169 K/uL (130-400); RDW Coefficient of Variation 12.4 % (11.5-14.5); RDW Standard Deviation 43.2 fL (36.4-46.3); White Blood Count 4.84 K/ul (4.8-10.8)
[2022-01-30] MEDS ORDERED: PANTOprazole 40 MG in SYRINGE 0 ML IV SCH (11:00)
[2022-01-30] MEDS ORDERED: PROMETHAZINE HCL 12.5 MG in SODIUM CHLORIDE 0.9% 50 ML IV PRN (11:18)
[2022-01-30] MEDS ORDERED: KETOROLAC 30 MG/ML VIAL IV PRN (11:18)
[2022-01-30] MEDS ORDERED: ACETAMINOPHEN 1,000 MG/100 ML VIAL IV STA (11:18)
[2022-01-30] MEDS ORDERED: ePHEDrine sulfate 50 MG/ML AMP IV PRN (11:18)
[2022-01-30] MEDS ORDERED: HYDROmorphone INJ 2 MG/ML SYR/VIAL IV PRN (11:18)
[2022-01-30] MEDS ORDERED: ATROPINE SULFATE 0.1 MG/ML 10ML SYR IV PRN (11:18)
[2022-01-30] MEDS ORDERED: SCOPOLAMINE 1 MG TDSY TD ONE (11:21)
[2022-01-30] MEDS ORDERED: LIDOCAINE 1% LOCAL 20 ML VIAL ONE (11:40)
[2022-01-30] MEDS ORDERED: BUPIVACAINE 0.5 % 5 MG/1 ML MPF 30ML VIAL ONE (11:40)
[2022-01-30] MEDS ORDERED: SUGAMMADEX SODIUM 200 MG/2 ML VIAL IV ONE (12:31)
--- NOTE | 2022-01-30 12:48 | Post Operative Brief Note ---
Immediate Post Op Note v1 Date of Surgery January 30, 2022 Pre & Post Diagnosis Operation Date: 01/29/22 21:05 <No data on this case meets the specified criteria> Operation Date: 01/30/22 07:30 Pre-Op Diagnosis: PENUMOPERITONEUM Post-Op Diagnosis: Vaginal cuff opening, repai. Lysis of adhesions I identified the patient and participated in the time-out.: Yes Procedure Operation Date: 01/29/22 21:05 <No data on this case meets the specified criteria> Operation Date: 01/30/22 07:30 Actual Procedures p Diagnostic Laparoscopy, lysis of adhesions (Not Applicable) - Chanda Harden MD s Vaginal Cuff Repair(Not Applicable) - Jovanni Archuleta MD Surgeon Chanda Harden MD Slot Floor Person KIRSTEN Paul Estimated Blood Loss 10 Findings Consistent with Post-Op Diagnosis vaginal cuff opening, band adhesion at pelvic area, no bowel perforation, Fluids 900ml Drains Tee Catheter Anesthesia Type General Complications none Disposition Accompanied Patient To Recovery: Yes
[2022-01-30] MEDS: fentaNYL citrate 100 MCG/2 ML VIAL IV PRN ×4 (13:13→13:28)
--- NOTE | 2022-01-30 13:43 | Anesthesiology Progress Note ---
Date of Service January 30, 2022 Anesthesia Post Procedure Vital Signs Vital Signs: Temp Pulse Pulse Pulse Resp BP BP 01/30/22 13:40 36.4 C L 76 16 104/68 01/30/22 13:30 83 17 106/68 01/30/22 13:20 96 H 17 110/64 01/30/22 13:10 86 18 103/60 01/30/22 13:03 36.3 C L 99 H 18 95/73 L 01/30/22 10:24 36.9 C 76 18 117/68 01/30/22 07:27 36.8 C 72 16 96/60 L 01/29/22 23:16 36.7 C 76 16 119/80 01/29/22 21:00 95 H 18 01/29/22 19:48 93 H 18 01/29/22 19:16 77 18 01/29/22 19:16 01/29/22 15:57 36.8 C 90 18 135/89 BP Pulse Ox O2 Del Method O2 Flow Rate 01/30/22 13:40 96 Room Air 01/30/22 13:30 99 Room Air 01/30/22 13:20 100 Oxymask 5 01/30/22 13:10 100 Oxymask 5 01/30/22 13:03 98 Oxymask 5 01/30/22 10:24 99 Room Air 01/30/22 07:27 98 Room Air 01/29/22 23:16 98 Room Air 01/29/22 21:00 127/84 98 Room Air 01/29/22 19:48 121/81 100 Room Air 01/29/22 19:16 98 Room Air 01/29/22 19:16 98 Room Air 01/29/22 15:57 100 Room Air Pain Intensity Abdomen: Pain Intensity: 5 Right Chest: Pain Intensity: 9 Transfer of Care Handoff Completed per policy Notes Mental Status: alert / awake / arousable and participated in evaluation Patient Amnestic to Procedure: Yes Nausea / Vomiting: adequately controlled Pain: adequately controlled Airway Patency, RR, SpO2: stable & adequate BP & HR: stable & adequate Hydration State: stable & adequate Anesthetic Complications: no major complications apparent and Pt Satisfied with anesthetic care
--- NOTE | 2022-01-30 14:02 | Electrocardiogram Report ---
Test Reason : Blood Pressure : / mmHG Vent. Rate : 078 BPM Atrial Rate : 078 BPM P-R Int : 112 ms QRS Dur : 080 ms QT Int : 356 ms P-R-T Axes : 058 020 005 degrees QTc Int : 405 ms Normal sinus rhythm Nonspecific T wave abnormality Abnormal ECG No previous ECGs available Confirmed by Samm Johnston ([id number]) on 01/30/2022 2:01:39 PM Referred By: REFERRED SELF Confirmed By:Samm Johnston
[2022-01-30] MEDS ORDERED: oxyCODONE/ACETAMINOPHEN 5mg/325mg TAB PO PRN (14:09)
[2022-01-30] MEDS: metroNIDAZOLE 500 MG/100 ML BAG IV SCH ×2 (15:36→22:44)
[2022-01-30] MEDS ORDERED: ACETAMINOPHEN 325 MG TAB PO PRN (15:45)
[2022-01-30] MEDS ORDERED: MoRPHine SULFATE 4 MG/ML 1 ML CARP\\VIAL IV PRN (15:47)
[2022-01-30] MEDS ORDERED: MoRPHine SULFATE 2 MG/ML CARP IV PRN (15:47)
[2022-01-30] MEDS: oxyCODONE/ACETAMINOPHEN 5mg/325mg TAB PO PRN ×2 (16:45→22:47)
--- NOTE | 2022-01-30 17:17 | Operative Report (OR) ---
DATE OF PROCEDURE: 01/30/2022. PREOPERATIVE DIAGNOSIS: Pneumoperitoneum. POSTOPERATIVE DIAGNOSES: Pneumoperitoneum, and adhesion intraabdominal. OPERATION: 1. Diagnostic laparoscopy. 2. lysis of adhesion. SURGEON: Chanda Harden MD. AUTOMATIC SEAMER: Paola Sue PA-C. ANESTHESIA: General. ESTIMATED BLOOD LOSS: About 10 mL FINDINGS: Pneumoperitoneum. Adhesion of the intraabdominal cavity. The vagina cuff opening. COMPLICATIONS: None. INDICATIONS FOR THE PROCEDURE: This is a 37-year-old female who presented to ED with right chest ramon n with right shoulder pain. The patient had a CT scan diagnosis of pneumoperitoneum and we admitted the patient and over the hospital; however, overnight, the patient had more abdominal pain. I recomm ended to do diagnostic laparoscopy, possible open, possible bowel resection, stoma. I did talk to th e patient about the benefit, risk, alternate procedure. I indicated the risks may include, but not l imited, such as bleeding, infection, injury to other organs, bowel obstruction, sepsis, incisional he rnia. The patient understands. She signed informed consent and I answered all questions and JAVA PERFORMANCE ENGINEER, Dr. Jovanni Archuleta did pelvic exam after general anesthesia. DETAILS OF PROCEDURE: After we identified the patient and verified the procedure, we brought the pat ient to the OR, put the patient in the lithotomy position. The patient received SCD on bilateral leg s to prevent DVT. Also, patient received 2 grams of Ancef IV for prophylactic antibiotic. The patie nt received general anesthesia without difficulty. Also, patient received Tee catheter insertion a nd then the JAVA PERFORMANCE ENGINEER, Dr. Jovanni Archuleta did pelvic exam, first found the patient had vaginal cuff openin g and I did the vaginal cuff opening repair and then the patient's abdomen was prepped and draped in routine sterile fashion. After timeout, I injected the local anesthesia by using 1% lidocaine mixed with 0.5% Marcaine just above the umbilicus. Then, the old incisions were reopened. The old incisio n was just above umbilicus, opened fascia, opened peritoneum. Under direct vision, put a Tobias troc ar in, connected to CO2 to create pneumoperitoneum, flow rate at 6 liters per minute, pressure not mo re than 14 mmHg. Once we got a nice pneumoperitoneum, we put a camera in, looked around the abdomen, showed normal fin ding on the small bowel or large bowel. At this moment, we put another two 5 mm trocars on the left lower quadrant area and then we run the small bowel, large bowel and did not see any perforation on t he small bowel and large bowel; however, we found the patient had one band adhesion on the low pelvic area and the potential cause of bowel obstruction. At this moment, we used the Harmonic to take nahun n the adhesive band, rechecked, no active bleeding. We also used a #5 clip to clip the band once we took it down. Then, we checked again the small bowel, large bowel and no perforation at this moment. Also, we checked the stomach, no perforation. At this moment, we removed all trocars under direct vi min. No active bleeding from the trocars site. The pneumoperitoneum was released, then I closed th e umbilical incision fascial layer by using 0 Vicryl [id number] x 2, closed subcutaneous layer b y using 2-0 Vicryl interruptedly, closed skin by using 4-0 Vicryl continuous running, closed another two 5 mm trocar site of skin only by using 4-0 Vicryl. Then, we put the dressing on. The patient to lerated the procedure well. All instrument, needle and sponge counts were correct x 2 at the end of the case. The patient was transferred to recovery room in stable condition. After the procedure, I did talk to the patient and patient's about the OR finding and the procedure we did, they und erstand and the optical assistant, Paola was necessary for this procedure. Her role was to hold the camera, retraction and exposure. Job ID: [id number]
[2022-01-31] MEDS: oxyCODONE/ACETAMINOPHEN 5mg/325mg TAB PO PRN ×2 (05:09→12:18)
[2022-01-31 06:09] LABS: Basophils # (auto) 0.02 K/uL (0-0.2); Basophils % (auto) 0.3 %; Eosinophils % (auto) 1.6 %; Hematocrit (blood only) 36.7 % (34.1-44.9); Immature Granulocytes # (auto) 0.02 K/uL (0.00-0.02); Immature Granulocytes % (auto) 0.3 %; Lymphocytes # (auto) 1.71 K/uL (1.2-3.4); Lymphocytes % (auto) 26.6 %; Mean Corpuscular Hemoglobin 31.3 pg (25.0-34.0); Mean Corpuscular Hgb Conc 32.7 g/dL (32.0-36.0); Mean Corpuscular Volume 95.8 fL (80.0-100.0); Mean Platelet Volume 10.2 fL (9.4-12.3); Monocytes % (auto) 7.8 %; Neutrophils # (auto) 4.07 K/uL (1.4-6.5); Neutrophils % (auto) 63.4 %; Platelet Count 148 K/uL (130-400); RDW Coefficient of Variation 12.4 % (11.5-14.5); RDW Standard Deviation 43.1 fL (36.4-46.3); Red Blood Count 3.83 M/uL (3.93-5.22); White Blood Count 6.42 K/ul (4.8-10.8)
[2022-01-31] MEDS: metroNIDAZOLE 500 MG/100 ML BAG IV SCH (06:29)
[2022-01-31 06:34] LABS: Albumin Globulin Ratio 1.5 (0.9-2); Albumin Level 3.2 gm/dl (3.4-5.0); BUN Creatinine Ratio 8.5 (10-20); Bilirubin,Total 0.5 mg/dl (0.2-1.0); Creatinine Clr Calc Pharmacy 103.8 ml/min; Est GFR (African American) 124.4 ml/min; Est GFR (Non-African American) 107.3 ml/min; Globulin 2.2 gm/dl (2.5-4.0); Potassium 3.5 mmol/L (3.5-5.1); Total Protein 5.4 gm/dl (6.0-8.3)
[2022-01-31] MEDS: TOPIRAMATE 100 MG TAB PO SCH (08:11)
[2022-01-31] MEDS: CIPROFLOXACIN / D5W 400 MG/200 ML BAG IV SCH (08:13)
[2022-01-31] MEDS: D5W AND 1/2NSS + 20MEQ KCL 20 MEQ/1,000 ML BAG IV SCH (10:00)
--- NOTE | 2022-01-31 11:37 | Surgery Progress Note ---
Date of Service January 31, 2022 Assessment & Plan (1) Pneumopericardium: Plan: pt is a 37 year-old female who presents to ER with 9 hours right chest pain and RUQ pain, IMP: pneumoperitoneum plan, I recommend to do diagnostic laparoscopy, possible exploratory laparotomy, bowel resection, or stoma, d/W benefits, risks and alternatives of the surgery, the risks - infection, bleeding, injury other organs, bowel obstruction, sepsis, abscess, incisional hernia, pt and her understood, they agreed with surgery, pt signed informed consent, I answered all questions, 01/30/2022 9:34 AM IMP: pneumoperitoneum plan, base on pt developed abdominal pain this morning, and OBG-YN note, I recommend to do diagnostic laparoscopy, possible exploratory laparotomy, bowel resection, or stoma, d/W benefits, risks and alternatives of the surgery, the risks - infection, bleeding, injury other organs, bowel obstruction, sepsis, abscess, incisional hernia, pt understood, she agreed with surgery, pt signed informed consent, I answered all questions, 01/31/2022 11: 34 AM, Dr. Harden F/U S/P diagnostic laparoscopy, lysis of adhesion, repair vaginal cuff, POD 1 pt is doing fine, no significant abdominal pain, no fever, normal WBC, tolerated diet, plan, D/c home today, I updated about OR finding and the procedure pt had to the pt, pt understood, I answered all questions, the post care instruction was given, F/u 2 weeks, po Cipro + glagyl for 5 days, Admission and Anticipated Discharge Date Admission Date: January 29, 2022 Subjective F/U pneumoperitoneum, pt feels some epigastric pain this morning, with nausea, no vomiting, no fever, vital signs stable, reviewed OBG-YN note with pt, 01/31/2022 11:[address] Harden F/U S/P diagnostic laparoscopy, lysis of adhesion, repair vaginal cuff, POD 1 pt is doing fine, no significant abdominal pain, no fever, normal WBC, tolerated diet, Physical Exam Constitutional: WD/WN, vitals as above Eyes: PERRL, conjunctivae normal, anicteric sclerae Neck: trachea midline, no thyromegaly Respiratory: normal respiratory effort, lungs clear to auscultation Cardiovascular: RRR, no murmur, no edema Gastrointestinal (Abdomen): soft, mild tenderness at incision sites, no rebound pain, no distend, all incisions intact, no redness, BS +, Musculoskeletal: no cyanosis or clubbing, extremities motor strength 5/5 Neurologic: patellar DTR's 2+ bilat, sensation intact Psychiatric: A+Ox3, euthymic affect Results & Data ([facility]) Vital Signs (Past 12 Hours) Vital Signs Temp Pulse Resp BP BP Pulse Ox O2 Del Method 01/31/22 07:47 36.7 C 57 L 18 101/65 100 Room Air 01/31/22 04:52 81 93/57 L 01/31/22 04:45 36.8 C 81 16 90/54 L 99 Room Air Laboratory Results Abnormal lab results 01/31/22 01/31/22 Range/Units 05:56 05:56 RBC 3.83 L (3.93-5.22) M/uL Chloride 115 H (98-107) mmol/L Carbon Dioxide 19 L (21-32) mmol/L BUN/Creatinine Ratio 8.5 L (10-20) Glucose 101 H (70-99(Fasting)) mg/dl Calcium 8.0 L (8.5-10.1) mg/dl AST 10 L (13-39) U/L Total Protein 5.4 L (6.0-8.3) gm/dl Albumin 3.2 L (3.4-5.0) gm/dl Globulin 2.2 L (2.5-4.0) gm/dl
--- NOTE | 2022-01-31 11:39 | Obstetrical Progress Note ---
Date of Service January 31, 2022 Assessment & Plan (1) Vaginal cuff dehiscence: POD #1 Vag. cuff repair and diagnostic laparoscopy pt doing well s/p vag cuff dehiscence, 3 months post hysterectomy Reviewed surgical finding and procedure with pt pt d/c home by gen Surg Subjective Review of Systems All systems reviewed & are unremarkable except as noted in HPI & below Physical Exam Constitutional WD/WN, vitals as above Eyes PERRL, conjunctivae normal, anicteric sclerae ENMT external ear and nose normal, oropharynx normal Neck trachea midline, no thyromegaly Respiratory normal respiratory effort, lungs clear to auscultation Cardiovascular RRR, no murmur, no edema Chest (Breasts) normal inspection/palpation of breasts Gastrointestinal (Abdomen) normal bowel sounds, soft, nontender, no hepatosplenomegaly Musculoskeletal no cyanosis or clubbing, extremities motor strength 5/5 Skin + incision (Incision clean,dry and intact) Neurologic patellar DTR's 2+ bilat, sensation intact Psychiatric A+Ox3, euthymic affect Genitourinary no vaginal lesions, no adnexal mass Lymphatic no cervical or axillary lymphadenopathy Results & Data ([facility]) Vital Signs (Past 12 Hours) Vital Signs Temp Pulse Resp BP BP Pulse Ox O2 Del Method 01/31/22 07:47 36.7 C 57 L 18 101/65 100 Room Air 01/31/22 04:52 81 93/57 L 01/31/22 04:45 36.8 C 81 16 90/54 L 99 Room Air
--- NOTE | 2022-01-31 12:05 | Operative Report (OR) ---
This is an intraoperative consult note. INDICATION FOR SURGERY: This is a 37-year-old status post robotic hysterectomy 3 months ago. The pa josefina had been doing well since surgery. She presented to the ER on 01/29/2022 with right upper quad rant pain. CT scan showed pneumoperitoneum. The etiology at that point was uncertain. Surgery was c onsulted. DESCRIPTION OF PROCEDURE: The patient eventually went to the operating room and in the operating marco m, examination under anesthesia in the vagina showed an opening in the vaginal cuff. After vagina wa s prepped with Betadine, a weighted speculum placed into the vagina. The vaginal cuff opening of abo ut 1 inch was closed with interrupted Vicryl suture. The rest of the operation was done by Dr. Harden, which will be dictated separately, but evaluation of the vaginal cuff from the abdomen showed the cu ff has been closed adequately. As stated above, the rest of the operation was dictated by Dr. Harden. Job ID: [id number]
--- NOTE | 2022-01-31 21:23 | Discharge Summary (DS) ---
DATE OF ADMISSION: 01/29/2022. DATE OF DISCHARGE: 01/31/2022. OPERATION: Diagnostic laparoscopy, lysis of adhesion, and repair of vagina cuff. SURGEONS: Chanda Harden MD and Jovanni Archuleta MD DETAILS OF DISCHARGE SUMMARY: This is a 37-year-old female who presented to the ED with right chest pain and with right shoulder pain. The patient had a CT scan diagnosis of pneumoperitoneum and the p atient was admitted to the hospital overnight; however, the patient had increased abdominal pain. We decided to take the patient to the OR to do diagnostic laparoscopy and also we reconsulted with the BUNGY JUMP MASTER doctor. So in the OR, they did pelvic exam and found the patient had an opening on the vagina cuff. They did a repair and then we did diagnostic laparoscopy with lysis of adhesions and the flavia ent tolerated the procedure well. After the procedure, the patient went to recovery room and later o n transferred to regular floor. The patient is doing fine. No significant abdominal pain overnight. The patient tolerated the diet. No fever. Normal white count. PHYSICAL EXAMINATION: VITAL SIGNS: Temperature is 36.7, respiratory rate 18, heart rate 57, blood pressure 101/65, O2 satu ration 100% on room air. GENERAL: The patient is alert, awake, oriented x3. HEENT: Within normal limitation. NEUROLOGIC: Intact. NECK: No JVD. CHEST: Bilateral lung sounds clear. HEART: Normal S1 and S2. No murmur. ABDOMEN: Soft, mild tenderness on the incision site. No rebound pain, no distention. All incisions intact. No redness. Bowel sounds positive. EXTREMITIES: No edema. The patient wanted to go home today. We gave the patient postop care instruction and also gave the p atient 5 days of Cipro and Flagyl p.o. with some pain medication with Percocet. The patient understa nds. I answered all questions. I will follow up with the patient in 2 weeks. Job ID: [id number]
== END 2022-01-31 12:56 | disposition home or self-care (01) | DRG 909 ==
LOC: ED 15:56 → 3N 21:50